=== PATIENT | male | born 1950 | race Hispanic/Latino ===

== ENCOUNTER 2017-09-27 11:57 | Emergency (ER) | payer MEDICARE, BC ==
[2017-09-27 12:28] VITALS: BMI 27.6
[2017-09-27 12:30] VITALS: BP 139/71; PULSE 51; RESP 17; TEMP 97.9; O2SAT 98
[2017-09-27 14:01] LABS: BASO # 0.1 K/uL (0.0-0.2); EOS # 0.3 K/uL (0.0-0.7); HEMATOCRIT 43.9 % (35.0-51.0); LYMPH # 2.2 K/uL (1.0-4.3); LYMPH % 27.7 % (20.0-40.0); MEAN CELL VOLUME 90.8 fl (80.0-94.0); MEAN CORPUSCULAR HEMOGLOBIN 30.5 pg (27.0-31.0); MEAN CORPUSCULAR HGB CONC 33.6 g/dL (33.0-37.0); MEAN PLATELET VOLUME 8.4 fl (7.2-11.7); MONO # 0.8 K/uL (0.0-0.8); MONO % 10.3 % (0.0-10.0); NEUT # 4.5 K/uL (1.8-7.0); NRBC % 0.1 % (0.0-0.0); RED CELL DISTRIBUTION WIDTH 13.5 % (11.5-14.5); WHITE BLOOD COUNT 7.9 K/uL (4.8-10.8)
--- NOTE | 2017-09-27 14:36 | ED PDOC ---
Lower Extremity Pain/Injury Time Seen by Provider: 09/27/17 13:05 Chief Complaint (Nursing): Lower Extremity Problem/Injury Chief Complaint (Provider): Toe Injury History Per: Patient History/Exam Limitations: no limitations Onset/Duration Of Symptoms: Days (x2) Current Symptoms Are (Timing): Still Present Additional Complaint(s): James Purvis is a 66 year old male who presents to the ED due to swelling of his right 4th toe ongoing for a few days. Patient fractured same toe 1 year ago. States he recently returned from the [place] and did a lot of walking which may have re-fractured his toe. Denies fever or chills, or repeat trauma. Patient states he has a cardiograph operator, Dr. Daugherty, that he follows up with. Also states he has been taking Cipro prescribed by his PMD for 4 days due to UTI. PMD: Trent Brumfield MD Past Medical History Reviewed: Historical Data, Nursing Documentation, Vital Signs Vital Signs: Last Vital Signs Temp 97.9 F 09/27/17 12:28 Pulse 51 L 09/27/17 12:28 Resp 17 09/27/17 12:28 BP 139/71 09/27/17 12:28 Pulse Ox 98 09/27/17 12:28 - Medical History PMH: HTN - Family History Family History: States: No Known Family Hx - Immunization History Hx Tetanus Toxoid Vaccination: No Hx Influenza Vaccination: No Hx Pneumococcal Vaccination: No - Home Medications Home Medications: Ambulatory Orders Medication Instructions Recorded Amlodipine Besylate [Norvasc] 5 mg PO DAILY 07/29/15 DiphenhydrAMINE [Benadryl] 50 mg PO Q6H #20 cap 07/29/15 Famotidine [Pepcid] 20 mg PO BID #20 tab 07/29/15 Hydrochlorothiazide 25 mg PO DAILY 07/29/15 Prednisone 50 mg PO DAILY #4 tab 07/29/15 Cephalexin [Keflex] 500 mg PO QID #28 capsule 09/27/17 Sulfamethoxazole/Trimethoprim 2 tab PO Q12 #28 tab 09/27/17 [Bactrim DS 800 mg-160 mg] - Allergies Allergies/Adverse Reactions: Allergies Allergy/AdvReac Type Severity Reaction Status Date / Time No Known Allergies Allergy Verified 09/27/17 12:56 Review of Systems ROS Statement: Except As Marked, All Systems Reviewed And Found Negative Constitutional: Negative for: Fever, Chills Musculoskeletal: Positive for: Foot Pain (right 4th toe) Physical Exam - Reviewed Nursing Documentation Reviewed: Yes Vital Signs Reviewed: Yes - Physical Exam Appears: Positive for: Well, Non-toxic, No Acute Distress Head Exam: Positive for: ATRAUMATIC, NORMAL INSPECTION, NORMOCEPHALIC Skin: Positive for: Normal Color. Negative for: Rash Eye Exam: Positive for: Normal appearance Extremity: Positive for: Tenderness (right 4th toe), Swelling (right 4th toe swelling and erythema) Neurologic/Psych: Positive for: Alert, Oriented - Laboratory Results Result Diagrams: 09/27/17 13:42 - ECG O2 Sat by Pulse Oximetry: 98 (RA) Pulse Ox Interpretation: Normal - Progress ED Course And Treament: xry of foot: no fx cbc wnl Call placed to Dr. Daugherty, patient's cardiograph operator to discuss care. Patient left prior to d/w with podiatry regarding his care. d/w Dr. Browning Medical Decision Making Medical Decision Making: Time: 13:04 Clinical Impression: Right foot injury Plan: --CBC w/ differential --X-Ray foot right 3 views --Reevaluation Time: 14:15 --Consulted with Dr. Daugherty Scribe Attestation: Documented by Trent Gonzalez, acting as a scribe for Rosalee Nascimento PA-C Provider Scribe Attestation: All medical record entries made by the Scribe were at my direction and personally dictated by me. I have reviewed the chart and agree that the record accurately reflects my personal performance of the history, physical exam, medical decision making, and the department course for this patient. I have also personally directed, reviewed, and agree with the discharge instructions and disposition. Disposition - Clinical Impression Clinical Impression: Cellulitis of foot - Patient ED Disposition Is Patient to be Admitted: No - Disposition Disposition: Routine/Home Disposition Time: 15:24 Condition: STABLE Additional Instructions: f/u with your cardiograph operator in 2 days Prescriptions: Cephalexin [Keflex] 500 mg PO QID #28 capsule Sulfamethoxazole/Trimethoprim [Bactrim DS 800 mg-160 mg] 2 tab PO Q12 #28 tab Instructions: Cellulitis (ED) Forms: [employer] [facility] (Divehi), [facility] ED School/Work Excuse
--- NOTE | 2017-09-27 17:01 | RAD ---
PROCEDURE: Right Foot Radiographs. HISTORY: FOOT PAIN COMPARISON: None available. FINDINGS: BONES: No acute displaced fracture. JOINTS: No dislocation. SOFT TISSUES: Unremarkable. No evidence of radiopaque foreign body. OTHER FINDINGS: None. IMPRESSION: No acute displaced fracture, dislocation, or significant joint effusion identified. If symptoms persist, or if there is continued clinical concern, x-ray follow-up in 7-10 days should be considered.
== END 2017-09-27 15:51 | disposition home or self-care (01) ==
LOC: H.ER 11:57
DX: L03.119 Cellulitis of unspecified part of limb (principal); I10 Essential (primary) hypertension

== ENCOUNTER 2018-04-10 23:53 | Emergency (ER) | payer BC, MEDICARE ==
[2018-04-10 23:55] VITALS: BMI 27.6
[2018-04-11] MEDS ORDERED: DiphenhydrAMINE 50 mg/ml Inj IVP STA (00:16)
[2018-04-11] MEDS ORDERED: methylPREDNISolone 125 MG in Sodium Chloride 0.9% 50 ML IVPB STA (00:16)
[2018-04-11] MEDS ORDERED: Famotidine 20mg/50ml Premix IVPB ONE (00:18)
--- NOTE | 2018-04-11 00:18 | ED PDOC ---
HPI: Allergic Reaction <Fatuma Rick Y - Last Filed: 04/11/18 02:09> Chief Complaint (Provider): Allergic reaction History Per: Patient History/Exam Limitations: no limitations Onset/Duration Of Symptoms: Hrs Current Symptoms Are (Timing): Still Present Home/EMS Treatment: Benadryl (25 mg PO once) Additional Complaint(s): 67 y/o male with h/o HTN, and possible seafood allergies in the past presents to ED complaining of changes in his voice, and throat itchy sensation after he ate a seafood paella one hour before his symptoms. Patient denies difficulty breathing, chest pain, SOB, N/V, dizziness, headaches, or other associated complains. As per his he took a benadryl 25 mg po once before they came to ED. <Samia Smith - Last Filed: 04/11/18 02:30> Chief Complaint (Nursing): Allergic Reaction Past Medical History Vital Signs: Last Vital Signs Temp 97.9 F 04/10/18 23:56 Pulse 77 04/10/18 23:56 Resp 16 04/10/18 23:56 BP 155/95 H 04/10/18 23:56 Pulse Ox 96 04/11/18 00:18 <Fatuma Rick Y - Last Filed: 04/11/18 02:09> Vital Signs: Last Vital Signs Temp 97.9 F 04/10/18 23:56 Pulse 77 04/10/18 23:56 Resp 16 04/10/18 23:56 BP 155/95 H 04/10/18 23:56 Pulse Ox 96 04/10/18 23:56 - Medical History PMH: HTN - Surgical History Surgical History: No Surg Hx - Family History Family History: States: Unknown Family Hx - Living Arrangements Living Arrangements: With Family - Social History Current smoker - smoking cessation education provided: No Ex-Smoker (has not smoked in the last 12 months): No Alcohol: None Drugs: Denies - Immunization History Hx Tetanus Toxoid Vaccination: No Hx Influenza Vaccination: No Hx Pneumococcal Vaccination: No <Samia Smith - Last Filed: 04/11/18 02:30> - Home Medications Home Medications: Ambulatory Orders Medication Instructions Recorded Amlodipine Besylate [Norvasc] 5 mg PO DAILY 09/28/15 DiphenhydrAMINE [Benadryl] 50 mg PO Q6H #20 cap 07/29/15 Famotidine [Pepcid] 20 mg PO BID #20 tab 07/29/15 Hydrochlorothiazide 25 mg PO DAILY 07/29/15 Prednisone 50 mg PO DAILY #4 tab 07/29/15 Cephalexin [Keflex] 500 mg PO QID #28 capsule 09/27/17 Sulfamethoxazole/Trimethoprim 2 tab PO Q12 #28 tab 09/27/17 [Bactrim DS 800 mg-160 mg] - Allergies Allergies/Adverse Reactions: Allergies Allergy/AdvReac Type Severity Reaction Status Date / Time seafood Allergy SHORTNESS Uncoded 04/10/18 23:56 OF BREATH Review of Systems ROS Statement: Except As Marked, All Systems Reviewed And Found Negative (as per HPI) <Samia Smith - Last Filed: 04/11/18 02:30> Physical Exam - Reviewed Nursing Documentation Reviewed: Yes Vital Signs Reviewed: Yes - Physical Exam Appears: Positive for: Non-toxic, No Acute Distress Skin: Positive for: Normal Color, Warm, Dry ENT: Positive for: Pharynx Is (edema), Pharyngeal Erythema Neck: Positive for: Supple Cardiovascular/Chest: Positive for: Regular Rate, Rhythm. Negative for: Edema, Gallop, Bradycardia Gastrointestinal/Abdominal: Positive for: Bowel Sounds (normal and present), Soft. Negative for: Tenderness, Distended, Guarding, Rebound Neurologic/Psych: Positive for: Alert, Oriented (x 3) <Samia Smith - Last Filed: 04/11/18 02:30> - ECG O2 Sat by Pulse Oximetry: 96 - Progress ED Course And Treament: Allergic Reaction -most likely to seafood -managed with benadryl 25 mg, solumedrol 125 mg IVP, and Pepcid 20 mg IV once case discussed with Dr. Rick -re-evaluation Re-evaluation -patient feels better, throat itchy sensation resolved, and muffled voice improving significantly. Stable VS. Patient stable to be discharge home with recommended f/u as outpatient with PMD in 1-2 day. Avoid seafood. ER precautions given. <Samia Smith - Last Filed: 04/11/18 02:30> Disposition <Fatuma Rick - Last Filed: 04/11/18 02:09> - Patient ED Disposition Is Patient to be Admitted: No Discussed With Dr.: Fatuma Rick - Disposition Disposition: Routine/Home Disposition Time: 02:25 <[email or web address] - Last Filed: 04/11/18 02:30> - Clinical Impression Clinical Impression: Acute allergic reaction - Disposition Referrals: Trent Brumfield [Primary Care Provider] - Condition: IMPROVED Forms: [employer] (Turkmen) Medical Decision Making Medical Decision Making: Patient notes eating seafood and confirms having an allergy to seafood. Notes erythema and edema to throat. Treated with Benadryl, Pepcid, and Solumedrol. Pending re-evaluation. Of note, patient took Benadryl [employer] but it in 2015. Scribe Attestation: Documented by Pema Hill acting as a scribe for Fatuma Rick MD. Scribe Attestation: All medical record entries made by the Scribe were at my direction and personally dictated by me. I have reviewed the chart and agree that the record accurately reflects my personal performance of the history, physical exam, medical decision making, and the department course for this patient. I have also personally directed, reviewed, and agree with the discharge instructions and disposition. <Fatuma Rick - Last Filed: 04/11/18 02:09>
[2018-04-11] MEDS ORDERED: Famotidine 20mg/50ml 20 MG/50 ML BAG IVPB ONE (00:27)
[2018-04-11 02:20] VITALS: BP 143/95; PULSE 63; RESP 18; TEMP 97.7
[2018-04-11 02:22] VITALS: O2SAT 96
== END 2018-04-11 02:49 | disposition home or self-care (01) ==
LOC: H.ER 23:53
DX: T78.40XA Allergy, unspecified, initial encounter (principal)
CPT/HCPCS: 96374; 99283; J1200; J2930